=== PATIENT | male | born 1945 | race Caucasian/White ===

== ENCOUNTER 2020-06-02 23:26 | Inpatient (IN) | payer MEDICARE, OTHER ==
--- NOTE | 2020-06-03 00:51 | PDOC.FPRHP ---
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 Patient states he was fishing 2 days ago when he noticed that he had a cut on the back of his right hand that was bleeding slightly. He does not recall cutting it. He states that since then his hand and wrist have gradually started swelling, getting warm and getting red. He states he had a temperature at home of 99. Denies chills/myalgias. Denies loss of sensation, numbness, tingling or pain in that right hand and wrist. ED Course: Given vanc and clindamycin at [facility], R hand and wrist XR showed dorsal soft tissue swelling - Allergies/Adverse Reactions Allergies Allergy/AdvReac Type Severity Reaction Status Date / Time Penicillins AdvReac Rash Verified 06/03/20 01:47 - Home Medications Medication Instructions Recorded Confirmed Type Allopurinol 300 mg PO DAILY 06/03/20 06/03/20 History Tamsulosin HCl [Flomax] 0.4 mg PO DAILY 06/03/20 06/03/20 History metFORMIN [Glucophage] 500 mg PO BID-WM 06/03/20 06/03/20 History - History PMHx: Gout, Type II Diabetes, BPH PSHx: R leg surgery, ventral and inguinal hernia repair, carpal tunnel b/l FHx: DM Social: smokes a pack a day x20+ years, 2-3 oz lani friedman every night, no drugs - Review of Systems General: denies: fever/chills, weight/appetite/sleep changes Eyes: denies: eye pain, vision changes ENT: denies: nasal congestion, rhinorrhea Respiratory: denies: cough, congestion, shortness of breath Cardiovascular: denies: chest pain, palpitation, edema Gastrointestinal: denies: nausea, vomiting, diarrhea, constipation, abdominal pain Genitourinary: denies: incontinence, dysuria Skin: reports: other (Redness of the right hand and wrist) Musculoskeletal: reports: swelling, other (edema of right hand and wrist). denies: pain, tenderness, stiffness Neurological: denies: numbness, syncope Psychological: denies: anxiety, depression - Vital signs Selected Entries 06/03/20 00:56 Temperature 98.3 F Pulse Rate 78 Blood Pressure 152/68 H [Sitting] Respiratory 20 Rate O2 Sat by Pulse 99 Oximetry Oxygen Delivery Room Air Method - Physical Exam Constitutional: NAD, awake, alert and oriented, well developed HEENT: normocephalic and atraumatic, PERRLA, EOMI Neck: supple, FROM Heart: RRR, no murmurs/rubs/gallops Lungs: CTAB, no respiratory distress Abdomen: soft, non-tender, bowel sounds present Musculoskeletal: other (R hand and wrist: amputation of 2nd digit, edema, erythe ma extending from the dorsal aspect of the hand extending 2in proximal to the wrist, warm, blistering, no fluctuance or exudate; FROM of wrist and fingers) Neurological: no focal deficit, normal sensation Skin: capillary refill <2 seconds Heme/Lymphatic: no unusual bruising or bleeding, no purpura Psychiatric: normal mood and affect, good judgment and insight, intact recent and remote memory FMR H&P: Results - Labs Result Diagrams: 06/03/20 06:04 06/03/20 06:04 FMR H&P: A/P - Plan Cellulitis of the R Hand, moderate XR R hand and wrist: No acute osseous abnormality, amputation of the second digit to the metacarpal head. Dorsal soft tissue swelling. WBC elevated at [facility] - continue vanc and clinda - am CBC/CMP - ESR, CRP, procal - if elevated or if symptoms worsen can consider MRI to look for osteo - marked margins of redness with sharpie - continue to monitor vitals Type II DM - continue home metformin - will add lipid panel for risk stratification - mild SS - a1c ordered Hx BPH - continue home meds Hx Gout - resume home allopurinol Dispo: admit to med, obs. Diet: CC PCP: Daquan Code: DNAR - states he has an OODNR signed *OF NOTE - patient sees Dr. Butt who gets admitted to the Hospitalists. Called the hospitalist team who will assume care later this morning for this patient.* FMR H&P: Upper Level - Plan Date/Time: 06/03/20 0050 IFarrah MD, have evaluated this patient and agree with findings/plan as outlined by hospital intern resident. Pertinent changes/additions are listed here. This is a 75yo M with PMH significant for DM2 who presents as a direct admit from [facility] for right hand cellulitis. He has previous amputation of his right 2nd digit from a previous infection. He reports that his sugars have been well controlled and he has been taking his metformin as prescribed. He notes that on Tuesday morning he was fishing when he noticed a spot on his right hand bleeding. He is uncertain how this happened. He denies any trauma or injury with fishing gear. He says that his hand got progressively more red and swollen since Tuesday. No other drainage or bleeding from the hand noted. He denies any fever, chills, NVD, cough, sore throat. Reports he feels well overall. VS stable. At the urgent care he was found to have an elevated WBC. Xray showed no osseous involvement. He was given vanc and clinda. PE remarkable for large area of erythema on dorsum of right hand, warmth and swelling. Almost with blistering appearance of lesions. Patient is able to move his fingers and wrist around freely. Patient is being admitted to med, obs for Moderate Cellulitis of his right hand. Will continue vanc, clinda for abx coverage. Site of redness marked with sharpie. Will get CRP, ESR, and procal. If elevated or if symptoms worsen can consider MRI to look for osteo. DM2 - will start mild SS for optimal wound healing. A1c pending. Continue other medications for chronic conditions. Dispo: admit to med, obs. Diet: CC PCP: Daquan Code: DNAR - states he has an OODNR signed *OF NOTE - patient sees Dr. Butt who gets admitted to the Hospitalists. Called the hospitalist team who will assume care later this morning for this patient.* Addendum - Attending - Attending Attestation Date/Time: 06/03/20 1168 I personally evaluated the patient at 0600 and discussed the management with Dr. Watson/Blu. I agree with the History, Examination, Assessment and Plan documented above with any addition or exceptions noted below. right hand swelling x1 day. continue abx. Will transfer care to [facility] hospitalist this morning due to PCP.
[2020-06-03] MEDS ORDERED: Dextrose 50% Abboject 50 ML SYRINGE SLOW IVP PRN (01:24)
[2020-06-03] MEDS ORDERED: Acetaminophen 325 MG TAB PO PRN (01:24)
[2020-06-03] MEDS ORDERED: HumaLOG 300 UNITS/3 ML VIAL SC PRN ×2 (01:24)
[2020-06-03] MEDS ORDERED: Dextrose 5% in Water 1,000 ML IV PRN (01:24)
[2020-06-03] MEDS ORDERED: Ibuprofen 800 MG TAB PO PRN (01:45)
[2020-06-03 01:59] VITALS: BMI 32.0
[2020-06-03] MEDS: Clindamycin 150 MG CAP PO SCH ×4 (04:40→20:17)
[2020-06-03 06:21] LABS: Hemoglobin A1c 5.1 % (4.0-6.0)
[2020-06-03 06:37] LABS: ALT (SGPT) 14 U/L (8-55); AST (SGOT) 13 U/L (5-34); Albumin 3.9 g/dL (3.4-4.8); Alkaline Phosphatase 72 U/L (40-110); Anion Gap 12 mmol/L (10-20); BUN (Urea Nitrogen) 16 mg/dL (8.4-25.7); Calc. Creatinine Clearance 124 mL/min (70-130); Calcium 9.3 mg/dL (7.8-10.44); Carbon Dioxide 19 mmol/L (23-31); Chloride 108 mmol/L (98-107); Cholesterol 126 mg/dl (< 200 Desired); Estimated GFR-MDRD Greater than 90; Globulin 2.4 g/dL (2.4-3.5); Glucose 115 mg/dL (83-110); HDL Cholesterol 42 mg/dL (>60 Neg Risk); LDL Cholesterol, Calculated 72 mg/dL; Potassium 4.2 mmol/L (3.5-5.1); Protein, Total 6.3 g/dL (5.8-8.1); Sodium 135 mmol/L (136-145); Triglycerides 60 mg/dL (Less than 150)
[2020-06-03 06:45] LABS: #Eosinphils 0.1 thou/uL (0.0-0.7); #Monocytes 0.5 thou/uL (0.11-0.59); #Neutrophils 8.5 thou/uL (1.40-6.50); %Basophils 0.1 % (0.0-1.0); %Eosinophils 0.7 % (0.0-10.0); %Lymphocytes 10.3 % (21.0-51.0); %Monocytes 5.1 % (0.0-10.0); %Neutrophils 83.8 % (42.0-75.0); Hemoglobin 16.2 g/dL (14.0-18.0); MDiff Complete? YES; Macrocytosis SLIGHT = 6-15 cells (100X) (0-5/hpf); Mean Corpuscular HGB CONC 34.9 g/dL (32.0-36.0); Mean Corpuscular Hemoglobin 36.8 pg (27.0-31.0); Mean Platelet Volume 7.4 fL (7.4-10.4); Platelet Count 174 thou/uL (130-400); Platelet Morphology Comment Appears Adequate; RBC Distribution Width 12.5 % (11.5-14.5); Red Blood Cell (RBC) Count 4.41 mill/uL (4.70-6.10); White Blood Cell (WBC) Count 10.2 thou/uL (4.8-10.8)
[2020-06-03] MEDS: Allopurinol 300 MG TAB PO SCH (08:32)
[2020-06-03] MEDS: metFORMIN 500 MG TAB PO SCH ×2 (08:32→17:09)
[2020-06-03] MEDS ORDERED: Tamsulosin HCl 0.4 MG CAP PO SCH ×2 (09:00→21:00)
[2020-06-03] MEDS: Vancomycin 1.5 GRAM/300 ML BAG 1.5 GM in Premix Bag 1 BAG IVPB SCH ×2 (09:19→20:18)
[2020-06-03 12:17] LABS: SARS-CoV-2 MS2 Positive; SARS-CoV-2 N Gene Negative; SARS-CoV-2 S Gene Negative; SARS-CoV-2 by NAA Not Detected (NotDetected); SARS-CoV-2 orf1ab Negative
[2020-06-04] MEDS: Clindamycin 150 MG CAP PO SCH ×2 (06:29→09:32)
--- NOTE | 2020-06-04 08:11 | PDOC.HOSPP ---
- Subjective Encounter Date: 06/04/20 Encounter Time: 10:00 Subjective: Patient with improvement in redness. It is blistering some. Pain improved. No fever or systemic symptoms. Really wants to go home. - Objective Vital Signs & Weight: Weight Weight 236 lb I&O: 06/03/20 06/04/20 06/05/20 06:59 06:59 06:59 Intake Total 480 1120 923 Balance 480 1120 923 Result Diagrams: 06/03/20 06:04 06/03/20 06:04 Additional Labs: Accuchecks 06/04/20 06/03/20 06/03/20 06:15 19:49 15:59 POC Glucose 134 H 164 H 109 H 06/03/20 10:54 POC Glucose 166 H Hospitalist ROS - Review of Systems Constitutional: denies: fever, chills Respiratory: denies: cough, shortness of breath Cardiovascular: denies: chest pain, palpitations Gastrointestinal: denies: nausea, vomiting, abdominal pain Skin: reports: rash - Medication Medications: Active Medications Generic Name Dose Route Start Last Admin Trade Name Freq PRN Reason Stop Dose Admin Allopurinol 300 mg 06/03/20 09:00 06/03/20 08:32 Allopurinol 300 Mg Tab PO 300 mg DAILY IRENA Administration Clindamycin HCl 450 mg 06/03/20 04:00 06/04/20 06:29 Clindamycin 150 Mg Cap PO 450 mg 0400,1000,1600,2200 IRENA Administration Metformin HCl 500 mg 06/03/20 08:00 06/03/20 17:09 Metformin 500 Mg Tab PO 500 mg BID-WM IRENA Administration Sodium Chloride 10 ml 06/03/20 09:00 06/03/20 20:18 Flush - Normal Saline 10 Ml Syringe IVF 10 ml Q12HR IRENA Administration Tamsulosin HCl 0.4 mg 06/03/20 21:00 06/03/20 20:17 Tamsulosin Hcl 0.4 Mg Cap PO 0.4 mg 2100 IRENA Administration - Exam General Appearance: NAD, awake alert ENT: moist mucosa Heart: RRR, no murmur, no gallops, no rubs Respiratory: CTAB, no wheezes, no rales, no ronchi Gastrointestinal: soft, non-tender, non-distended, normal bowel sounds Extremities: no edema Skin: negative: no rashes Skin - other findings: right hand with redness, retreating from drawn line, nontender, some bliste Psychiatric: normal affect, normal behavior, A&O x 3 Hosp A/P (1) Cellulitis of right hand Code(s): L03.113 - CELLULITIS OF RIGHT UPPER LIMB Status: Acute (2) DM type 2 (diabetes mellitus, type 2) Status: Chronic (3) BPH (benign prostatic hyperplasia) Code(s): N40.0 - BENIGN PROSTATIC HYPERPLASIA WITHOUT LOWER URINRY TRACT SYMP Status: Chronic (4) Gout Code(s): M10.9 - GOUT, UNSPECIFIED Status: Chronic - Plan Cellulitis of the R Hand, moderate XR R hand and wrist: No acute osseous abnormality, amputation of the second digit to the metacarpal head. Dorsal soft tissue swelling. WBC elevated at [facility], normalized here - continue oral clinda, can d/c vancomycin - am CBC/CMP - ESR normal, CRP up some - symptoms markedly improved, no evidence osteomyelitis Type II DM - continue home metformin - mild SS - a1c and lipid profile excellent Hx BPH - continue home meds Hx Gout - resume home allopurinol Dispo: admitted to med, has continued to improve so can d/c home on oral clindamycin. Warnings given to return if symptoms worsen on oral antibiotics or if develops diarrhea. Will d/c home. Diet: CC PCP: Daquan Code: DNAR - states he has an OODNR signed
[2020-06-04] MEDS: Allopurinol 300 MG TAB PO SCH (08:24)
[2020-06-04] MEDS: metFORMIN 500 MG TAB PO SCH (08:24)
[2020-06-04 08:28] VITALS: BP 126/58; TEMP 97.7
[2020-06-04 08:35] LABS: Vancomycin, Trough 8.4 ug/mL
[2020-06-04] MEDS ORDERED: VANCOMYCIN HCL IVPB SCH (10:00)
[2020-06-04] MEDS ORDERED: SODIUM CHLORIDE 0.9% IVPB SCH (10:00)
--- NOTE | 2020-06-05 02:47 | DIS ---
DATE OF ADMISSION: 06/03/2020 DATE OF DISCHARGE: 06/04/2020 PRIMARY CARE PHYSICIAN: Dr. Butt. REASON FOR ADMISSION: Cellulitis of the hand. DIAGNOSES AT DISCHARGE: 1. Right hand cellulitis, improved. 2. Diabetes mellitus, type 2. 3. Benign prostatic hyperplasia. 4. Gout. PROCEDURES: None. CONSULTATIONS: None. SUMMARY OF HOSPITAL COURSE: This is a 75-year-old white male with a history of diabetes and a previous right 2nd digit amputation, who presented with cellulitis of his right hand and wrist. He had been fishing two days prior and inadvertently cut on the back of his hand and he was bleeding slightly, and then his hand and wrist started to swell gradually, it got warm, red, and painful, temperature max about 99 at home. No other symptoms. The patient went to an Urgent Care and had an x-ray showing dorsal soft tissue swelling but no bony involvement. He was given vanc and clindamycin and transferred to our hospital. We did admit him and continue the vanc and clindamycin. He had marked improvement in the redness of hand and stopped tracking up the hand and started to retreat. The redness improved. He did develop some clear blisters on the back of his hand, but no mucopurulent discharge. The patient's white count was normal. He had no fevers in the hospital and so he was transitioned to oral clindamycin, which he tolerated well and he is being discharged home. DISCHARGE MANAGEMENT: Discharged to home. FOLLOWUP: Follow up with Dr. Butt on Tuesday or if he is not able to get in early next week. ACTIVITY: As tolerated. DIET: Diabetic diet. MEDICATIONS: 1. Clindamycin 300 mg 4 times a day, 40 capsules dispensed. 2. Allopurinol 300 mg daily. 3. Metformin 500 mg twice a day. 4. Tamsulosin 0.4 mg daily. Job ID: [id number]
--- NOTE | 2020-06-06 00:40 | PQF ---
Dear : Hai Castle Date 06/06/2020 Please exercise your independent, professional judgment in responding to the clarification form. Clinical indicators are provided on the bottom of this form for your review Can you please further clarify the diagnosis of the patient? Please check appropriate box(s): [ ] Right hand Cellulitis due recent surgery [ ] Right hand Cellulitis due to Diabetes [ X ] Right hand Cellulitis due other,please specify:__abrasion [ ] Other diagnosis [ ] Unable to determine Physician Signature: Date/Time: For continuity of documentation, please document condition throughout progress notes and discharge summary. Thank You. To be completed by CDI/Coding staff for physician review: Present Clinical Indicators - Signs / Symptoms / Labs Results and Location in Medical Record [ x ] Cellulitis of the right hand and wrist H and P pg.1 [ x ] He has previous amputation of his right 2nd digit from previous infection. H and P pg.4 [ x ] Found to have elevated WBC H and P pg.4 [ x ] XR R hand and wrist: No acute osseous abnormality, amputation of the second digit to the metacarpal head Hospitalist PN pg.3 [ x ] Right hand cellulitis improved DS pg.1 [ x ] POC Glucose: 125H, 166H, 109H, 164H, 134H Laboratory Present Risk Factors Results and Location in Medical Record [ x ] 75 years old H and P pg.1 [ x ] DMII H and P pg.1 [ x ] Right 2nd digit amputation H and P pg.1 [ x ] Smoker H and P pg.1 [ x ] Gout H and P pg.1 Present Treatments Results and Location in Medical Record [ x ] IV Fluids MAR [ x ] Glucagon 25mg IV MAR [ x ] Humalog 2 units Subcu MAR [ x ] Clindamycin 450mg PO MAR [ x ] Vancomycin 1.5gm IV MAR [facility] Folder Signature: Joe Wily Phone #: [phone] Date/Time:06/06/2020 This is a permanent part of the Medical Record [facility]
== END 2020-06-04 11:07 | disposition home or self-care (01) | DRG 603 ==
LOC: ONC 23:26 → INTOOBSV 23:26 → OBSVTOIN 06-03 10:07
PROVIDERS: ADMIT Family Medicine; ATTEND Emergency Medicine
DX: L03.113 Cellulitis of right upper limb (principal); D69.3 Immune thrombocytopenic purpura; Z66 Do not resuscitate; E11.9 Type 2 diabetes mellitus without complications; M10.9 Gout, unspecified; N40.0 Benign prostatic hyperplasia without lower urinary tract symptoms; F17.210 Nicotine dependence, cigarettes, uncomplicated; Z88.0 Allergy status to penicillin; Z79.84 Long term (current) use of oral hypoglycemic drugs; Z79.899 Other long term (current) drug therapy
CPT/HCPCS: 36415; 36416; 80053; 80061; 80202; 83036; 84145; 85025; 85652; 86140; 87635; 96365; G0378; J3370; U0003